=== PATIENT | male | born 1960 | race Caucasian/White ===

== ENCOUNTER 2017-04-07 13:45 | Emergency (ER) | payer BC ==
--- NOTE | 2017-04-18 18:10 | ER ---
ADMIT: 04/07/2017 RM/LOC: ER [facility] MR#: [id number] [address] [id number] LIZ HASSAN [address] [place] [address] Emergency Room Report SEX: M AGE: 56 : 1960 DATE: 04/07/2017 CHIEF COMPLAINT: Left knee pain. HISTORY OF PRESENT ILLNESS: This is a 56-year-old male, who just noticed more swelling in his left leg and into the back of his knee, also complains of some pain on anterior portion of his knees bilaterally, which is chronic, but worse on the left. No x-rays done because there was no trauma. Due to the swelling, I did venous Doppler to negative for any DVT. Discharged him home with an Will wrap. Told him to go buy a knee brace for work and follow up with PCP if worsen. NEFTALI Arboleda / Derek Strong MD / gerardo JOB #: [id number] CC: Derek Strong MD, Attending Physician Eliza Botello, Family Physician
== END 2017-04-07 16:10 | disposition home or self-care (01) ==
LOC: ER 13:45
DX: M25.562 Pain in left knee (principal)